=== PATIENT | male | born 1995 | race African-American/Black ===

== ENCOUNTER 2016-12-06 19:02 | Emergency (ER) | payer SELFPAY ==
[~2016-12-06] VITALS: Ht 185.4 cm; Wt 121.7 kg
[~2016-12-06 19:02] MED LIST: ALBUTEROL SULF8.5 GM IH; ALBUTEROL0.63 MG/3 IH; AMOXICILLIN500 MG PO; CETAPHIL GENTL TP; CLARITIN,ALAVAR10 MG PO; DELTASONE20 M1 PO; FLOVENT 44120 INHALA IH; MEDROL DOSEPAK4 MG PO; PREDNISONE10 MG PO; PREDNISONE20 MG PO; PROAIR HFA8.5 GM IH; PROVENTIL HFA6.7 GM IH; PROVENTIL,2.5 MG/3 M IH; PROVENTIL,VENTOL2 MG PO; PROVENTIL2.5 MG/3 M IH; QVAR 40 MCG IN7.3 GM IH; VENTOLIN HFA18 GM IH; ZITHROMAX Z-PA250 MG PO; ZYRTEC10 M2 PO; ZYRTEC10 M3 PO
[2016-12-06] MEDS ORDERED: PROAIR HFA8.5 GM IH (19:45)
[2016-12-06] MEDS ORDERED: DELTASONE20 M1 PO (20:04)
[2016-12-06 20:09] VITALS: BP 136/79
== END 2016-12-06 20:14 | disposition home or self-care (01) ==
LOC: EME 19:02 → RME 19:02
DX: J45.21 Mild intermittent asthma with (acute) exacerbation (principal)
CPT/HCPCS: 94640; 99281; 99283; J7512

== ENCOUNTER 2017-05-16 19:55 | Emergency (ER) | payer SELFPAY ==
[~2017-05-16] VITALS: Ht 188 cm; Wt 117.5 kg
[2017-05-16] MEDS ORDERED: VENTOLIN HFA18 GM IH (23:24)
[2017-05-16] MEDS ORDERED: PREDNISONE20 MG PO (23:24)
[2017-05-17 00:34] VITALS: BP 136/74
== END 2017-05-17 00:37 | disposition home or self-care (01) ==
LOC: EME 19:55
DX: J45.901 Unspecified asthma with (acute) exacerbation (principal)
CPT/HCPCS: 71020; 94640; 99281; 99284; J7512

== ENCOUNTER 2017-06-18 11:48 | Emergency (ER) | payer SELFPAY ==
[~2017-06-18] VITALS: Ht 188 cm; Wt 116.4 kg
[2017-06-18] MEDS ORDERED: VENTOLIN HFA18 GM IH (13:22)
[2017-06-18] MEDS ORDERED: PREDNISONE20 MG PO (13:22)
[2017-06-18 14:08] VITALS: BP 135/83
== END 2017-06-18 14:09 | disposition home or self-care (01) ==
LOC: EME 11:48
DX: J45.901 Unspecified asthma with (acute) exacerbation (principal); F17.200 Nicotine dependence, unspecified, uncomplicated
CPT/HCPCS: 71020; 94640; 99281; 99283; J7512

== ENCOUNTER 2017-07-18 02:54 | Emergency (ER) | payer SELFPAY ==
[~2017-07-18] VITALS: Ht 188 cm; Wt 114.4 kg
[2017-07-18] MEDS ORDERED: PREDNISONE50 MG PO (03:06)
[2017-07-18 03:47] VITALS: BP 136/89
== END 2017-07-18 03:52 | disposition home or self-care (01) ==
LOC: EME 02:54
DX: J45.909 Unspecified asthma, uncomplicated (principal); F17.200 Nicotine dependence, unspecified, uncomplicated
CPT/HCPCS: 99281; 99283; J7512